=== PATIENT | female | born 1950 | race Caucasian/White ===

== ENCOUNTER 2017-05-11 10:57 | Outpatient (CLI) | payer OTHER ==
--- NOTE | 2017-05-11 11:46 | DIAGNOSTIC IMAGING REPORT ---
PROCEDURE: DEXA BONE DENSITY STUDY CLINICAL INDICATION: MENOPAUSAL COMPARISON: DEXA scan 04/30/2002. FINDINGS: LUMBAR SPINE: Bone mineral density 0.861, T-score -1.7, osteopenia (previously bone mineral density 1.009, T-score -0.3, 14.7% bone mineral density loss) LEFT HIP: Bone mineral density 0.694, T-score -2.0, osteopenia (previously bone mineral density 0.866, T-score -0.6, 19.8% bone mineral density loss). LEFT FEMORAL NECK: Bone mineral density 0.600, T-score -2.2, osteopenia (previously bone mineral density 0.769, T-score -0.7, 21.9% bone mineral density loss). (T score greater or equal to -1.0 to: NORMAL) (T score from -1.1 to -2.4: OSTEOPENIA) (T score ess than or equal to -2.5: OSTEOPOROSIS) IMPRESSION: 1. Lumbar spine osteopenia with 14.7% bone mineral density loss 2. Left hip osteopenia with femoral neck 21.9% bone mineral density loss 3. 10-year fracture risk: Major osteoporotic fracture 12%, hip fracture 2%
--- NOTE | 2017-05-11 13:47 | DIAGNOSTIC IMAGING REPORT ---
PROCEDURE: MG BILATERAL SCREENING W/CAD INDICATION: SCREENING TECHNIQUE: Standard CC and MLO views bilaterally. Computer aided detection was used. COMPARISON: 05/07/2014, 06/13/2009, 03/21/2008 FINDINGS: Mildly dense fibroglandular tissue is present bilaterally. No developing densities, areas of architectural distortion, or suspicious microcalcifications. IMPRESSION: 1. Stable mammograms without radiographic evidence of malignancy. RESULT CODE: 1- Negative. A. A negative report should not delay biopsy if a dominant or clinically suspicious mass is present. 10-15% of cancers are not identified by x-ray. B. A negative report may reinforce clinical impression. C. Adenosis and dense breasts may obscure an underlying neoplasm. D. False positive reports average 6-10%. E.. A yearly screening mammogram is recommended. A reminder letter will be scheduled.
== END 2017-05-11 23:00 | disposition home or self-care (01) ==
LOC: MAM SRH 10:57
DX: M85.88 Other specified disorders of bone density and structure, other site (principal); M85.80 Other specified disorders of bone density and structure, unspecified site; Z12.31 Encounter for screening mammogram for malignant neoplasm of breast